=== PATIENT | female | born 1975 | race Caucasian/White ===

== ENCOUNTER 2018-05-14 11:32 | Outpatient (CLI) | payer OTHER, MEDICAID ==
[~2018-05-14 11:32] MED LIST: ASA81 PO; BIOT25008 PO; ESCI10TA PO; ESCI5TAB PO; GLU500 PO; HYDR-2470 PO; SYN50 PO
== END 2018-05-14 20:01 | disposition home or self-care (01) ==
LOC: SRD 11:32
PROVIDERS: ATTEND Internal Medicine
DX: M17.0 Bilateral primary osteoarthritis of knee (principal); M25.861 Other specified joint disorders, right knee; D48.0 Neoplasm of uncertain behavior of bone and articular cartilage

== ENCOUNTER 2019-02-24 11:46 | Emergency (ER) | payer OTHER, MEDICAID ==
[~2019-02-24] VITALS: Ht 142.2 cm; Wt 72.6 kg
[~2019-02-24 11:46] MED LIST changes: -HYDR-2470 PO; +HYDR-500 PO
[2019-02-24 12:02] VITALS: BP_SYST 95
--- NOTE | 2019-02-24 12:02 | NUR ---
Patient to ER bed 2 to gown for evaluation. Side rails up. Report given to MALLORY Wilkins.
--- NOTE | 2019-02-24 12:12 | NUR ---
Patient is awake, alert, and oriented x4. Patient reports pain and redness in left earlobe, pain 7/10 on palpation since yesterday.
--- NOTE | 2019-02-24 12:39 | NUR ---
ER Dr. Ramos at bedside examining patient.
--- NOTE | 2019-02-24 12:41 | NUR ---
Patient given written and verbal discharge instructions and verbalizes understanding. ER MD discussed with patient the results and treatment provided. Patient in stable condition. ID arm band removed. Rx of augmentin, tylenol, neosporin given. Patient educated on pain management and to follow up with PMD. Pain Scale 0/10. Opportunity for questions provided and answered. Medication side effect fact sheet provided.
== END 2019-02-24 12:42 | disposition home or self-care (01) ==
LOC: SED 11:46
DX: H60.92 Unspecified otitis externa, left ear (principal); Z79.82 Long term (current) use of aspirin; Z79.899 Other long term (current) drug therapy
CPT/HCPCS: 99283

== ENCOUNTER 2020-02-06 12:17 | Emergency (ER) | payer OTHER, MEDICAID ==
[~2020-02-06] VITALS: Ht 149.9 cm; Wt 79.4 kg
[2020-02-06] MEDS ORDERED: KETOROLAC TROMETHAMINE 30 MG VIAL IM ONE (12:30)
[2020-02-06] MEDS ORDERED: CYCLOBENZAPRINE HCL 10 MG TABLET (FLEXERIL) PO ONE (12:30)
[2020-02-06 12:44] VITALS: BP_SYST 122
[2020-02-06 13:50] VITALS: BP_SYST 122
== END 2020-02-06 13:50 | disposition home or self-care (01) ==
LOC: SED 12:17
DX: S16.1XXA Strain of muscle, fascia and tendon at neck level, initial encounter (principal); M54.9 Dorsalgia, unspecified; Z79.899 Other long term (current) drug therapy; Z79.82 Long term (current) use of aspirin; V49.9XXA Car occupant (driver) (passenger) injured in unspecified traffic accident, initial encounter; Y93.89 Activity, other specified; Y92.413 State road as the place of occurrence of the external cause; Y99.8 Other external cause status
CPT/HCPCS: 72040; 96372; 99283; J1885